=== PATIENT | male | born 1960 | race African-American/Black ===

== ENCOUNTER 2017-02-16 12:10 | Day surgery (SDC) | payer OTHER ==
[~2017-02-16] VITALS: Ht 30.5 cm; Wt 0.5 kg
== END 2017-02-16 14:30 | disposition home or self-care (01) ==
LOC: OR 12:10
PROC: 0DBH8ZZ Excision of Cecum, Via Natural or Artificial Opening Endoscopic (ICD-10-PCS; principal; 2017-02-16)
DX: D12.0 Benign neoplasm of cecum (principal); K64.8 Other hemorrhoids; Z12.11 Encounter for screening for malignant neoplasm of colon
CPT/HCPCS: J2001; J2250; J2704; J3010; J3490

== ENCOUNTER 2020-04-15 08:13 | Outpatient (CLI) | payer OTHER | END 2020-04-15 19:18 | disposition home or self-care (01) | LOC: LABW 08:13 | DX: K64.0 First degree hemorrhoids (principal) | CPT/HCPCS: 82272 ==

== ENCOUNTER 2021-04-14 08:51 | Outpatient (CLI) | payer OTHER | END 2021-04-14 20:32 | disposition home or self-care (01) | LOC: LABW 08:51 | PROVIDERS: ATTEND Internal Medicine Gastroenterology | DX: K64.0 First degree hemorrhoids (principal) | CPT/HCPCS: 82272 ==

== ENCOUNTER 2022-03-26 08:47 | Outpatient (CLI) | payer OTHER ==
[2022-03-26 09:45] LABS: POTASSIUM 4.1 mmol/L (3.6-5.2)
[2022-03-26 09:48] LABS: PLATELET COUNT 267 K/uL (142-355)
[2022-03-26 10:28] LABS: PARTIAL THROMBOPLASTIN TIME 26.7 SECONDS (24.5-33.6)
== END 2022-03-26 19:05 | disposition home or self-care (01) ==
LOC: LABW 08:47
PROVIDERS: ATTEND Neurological Surgery
DX: M48.062 Spinal stenosis, lumbar region with neurogenic claudication (principal); Z20.828 Contact with and (suspected) exposure to other viral communicable diseases; Z72.0 Tobacco use; Z79.01 Long term (current) use of anticoagulants
CPT/HCPCS: 36415; 80053; 85027; 85610; 85730; 87635; 93005; G2023; U0003

== ENCOUNTER 2022-06-22 08:37 | Outpatient (CLI) | payer OTHER | END 2022-06-22 19:53 | disposition home or self-care (01) | LOC: US 08:37 | PROVIDERS: ATTEND Family Medicine | DX: R09.89 Other specified symptoms and signs involving the circulatory and respiratory systems (principal); E78.00 Pure hypercholesterolemia, unspecified; I10 Essential (primary) hypertension; E11.9 Type 2 diabetes mellitus without complications ==

== ENCOUNTER 2023-05-16 09:08 | Outpatient (CLI) | payer OTHER | END 2023-05-16 19:01 | disposition home or self-care (01) | LOC: LABW 09:08 | PROVIDERS: ATTEND Internal Medicine Gastroenterology | DX: K64.0 First degree hemorrhoids (principal) | CPT/HCPCS: 82272 ==